=== PATIENT | female | born 1930 | race Caucasian/White ===

== ENCOUNTER 2017-04-22 12:18 | Emergency (ER) | payer OTHER, MEDICARE ==
[~2017-04-22] VITALS: Ht 157.5 cm; Wt 63.5 kg
[~2017-04-22 12:18] MED LIST: ASPIRIN81 M4 PO; LEVOTHYROXINE50 MCG PO; MACROBID 100 M100 MG PO; MOBIC7.5 M1 PO; PROLIA60 MG/1 ML; SIMVASTATIN10 M1 PO; VITAMIN D1000 UNIT PO
[2017-04-22 12:24] VITALS: BP 136/72
--- NOTE | 2017-04-22 12:50 | ED MVC/FALL/TRAUMA COMPLAINT ---
History of Present Illness General Chief Complaint: Fall Stated Complaint: FALL EARLIER, R HIP PAIN Source: patient, family, old records Exam Limitations: no limitations Vital Signs & Intake/Output Vital Signs & Intake/Output Vital Signs Date Time Temp Pulse Resp B/P B/P Pulse O2 O2 Flow FiO2 Mean Ox Delivery Rate 04/22 1224 98.1 78 20 136/72 96 Room Air Allergies Coded Allergies: NO KNOWN ALLERGIES (05/24/14) Reconcile Medications Aspirin (Aspirin*) 81 MG TAB.CHEW 1 TAB PO DAILY HEART HEALTH (Reported) Cholecalciferol (Vitamin D3) (Vitamin D) 1,000 UNIT TABLET 1 TAB PO DAILY SUPPLEMENT (Reported) Denosumab (Prolia) 60 MG/1 ML SYRINGE 1 INJ BONE (Reported) Levothyroxine Sodium 50 MCG TABLET 1 TAB PO DAILY AC THYROID (Reported) Meloxicam (Mobic) 7.5 MG TABLET 1 TAB PO DAILY PRN PAIN Nitrofurantoin Monohyd/M-Cryst (Macrobid 100 MG Capsule) 100 MG CAPSULE 1 CAP PO BID INFECTION with food Simvastatin (Simvastatin*) 10 MG TABLET 1 TAB PO EOD CHOLESTEROL (Reported) Triage Note: PT TO ED C/O RIGHT SIDED HIP PAIN S/P TRIP AND FALL THIS AM. ALSO C/O RIGHT ELBOW PAIN. C/O "BUMP" TO RIGHT HIP. DENIES HEADSTRIKE. Triage Nurses Notes Reviewed? yes Onset: Morning Duration: hour(s):, constant, continues in ED Timing: recent history Severity: mild Injuries/Fall Location: lower extremity Method of Injury: fall Loss of Consciousness: no loss of consciousness Modifying Factors: Worsens With: palpation. LMP (ages 10-50): post menopausal : No Patient currently breastfeeds: No HPI: Several hours prior to admission patient tripped and fell onto her right hip. She complains of pain and swelling with limping. She denies other injury fever chills nausea vomiting diarrhea abdominal pain chest pain shortness breath headache dysuria rash bleeding change in motor sensory function change in bowel bladder habit. Past History Travel History Traveled to [place] past 21 day No Medical History Any Pertinent Medical History? see below for history Neurological: NONE EENT: NONE Cardiovascular: hyperlipidemia Respiratory: NONE Gastrointestinal: NONE Hepatic: NONE Renal: NONE Musculoskeletal: osteoporosis, SPINAL STENOSIS Psychiatric: NONE Endocrine: hypothyroidism Blood Disorders: NONE Cancer(s): NONE Surgical History Surgical History: non-contributory Psychosocial History What is your primary language Moh[place] Tobacco Use: Quit >30 days ago ETOH Use: denies use Illicit Drug Use: denies illicit drug use Family History Hx Contributory? No Review of Systems Review of Systems Constitutional: Reports: no symptoms. Eyes: Reports: no symptoms. Ears, Nose, Throat, Mouth: Reports: no symptoms. Respiratory: Reports: no symptoms. Cardiovascular: Reports: no symptoms. Gastrointestinal/Abdominal: Reports: no symptoms. Genitourinary: Reports: no symptoms. Musculoskeletal: Reports: see HPI, joint pain. Skin: Reports: no symptoms. Neurological/Psychological: Reports: no symptoms. All Other Systems: Reviewed and Negative Physical Exam Physical Exam General Appearance: well developed/nourished, alert, awake, anxious, mild distress Head: atraumatic, normal appearance Eyes: Bilateral: normal appearance, PERRL, EOMI, normal inspection. Ears, Nose, Throat, Mouth: hearing grossly normal, moist mucous membrane Neck: normal inspection, supple, full range of motion, normal alignment Respiratory: normal breath sounds, chest non-tender, no respiratory distress, quiet respiration, lungs clear Cardiovascular: regular rate/rhythm, normal peripheral pulses, norml femoral pulses equa Peripheral Pulses: 4+ carotid (R), 4+ carotid (L) Gastrointestinal: normal bowel sounds, soft, non-tender, no organomegaly Back: normal inspection, normal range of motion, no vertebral tenderness Extremities: evidence of injury, bony-point tenderness, tenderness (soft tissue) Neurologic/Psych: no motor/sensory deficits, awake, alert, oriented x 3, normal mood/affect, electroplater II-XII nml as tested Skin: intact, normal color, warm/dry Core Measures ACS in differential dx? No Severe Sepsis Present: No Septic Shock Present: No Progress Differential Diagnosis: ext injury Plan of Care: Orders Procedure Date/time Status XRY-HIP 2-3 VIEWS, RIGHT 04/22 1248 Active Diagnostic Imaging: Viewed by Me: Radiology Read. Discussed w/RAD: Radiology Read. Radiology Impression: no acute abnormality, no fracture, no dislocation Departure Departure Time of Disposition: 1330 Disposition: HOME OR SELF CARE Condition: Stable Clinical Impression Primary Impression: Contusion of hip, right Qualifiers: Encounter type: initial encounter Qualified Code: S70.01XA - Contusion of right hip, initial encounter Referrals: ARNOLDO DESOUZA MD (PCP/Family) Departure Forms: Customer Survey General Discharge Information
--- NOTE | 2017-04-22 13:30 | RADIOLOGY REPORT ---
EXAMINATION: XR HIP, RIGHT CLINICAL INFORMATION: Fall onto right hip with tenderness. Hematoma. Evaluate for fracture. COMPARISON: No relevant prior imaging is available. TECHNIQUE: Two views of the right hip. FINDINGS: There is no acute fracture or dislocation. The joint space is maintained. Visualized portions of the right hemipelvis are unremarkable. The right sacrum and right sacroiliac joint are intact. IMPRESSION: Unremarkable radiograph of the right hip. No evidence of acute fracture or dislocation.
== END 2017-04-22 13:47 ==
LOC: ERH 12:18
DX: S70.01XA Contusion of right hip, initial encounter (principal); W18.09XA Striking against other object with subsequent fall, initial encounter; Y92.9 Unspecified place or not applicable; Y93.9 Activity, unspecified
CPT/HCPCS: 73502-RT